=== PATIENT | female | born 1985 | race Two or more races ===

== ENCOUNTER 2017-08-16 19:10 | Emergency (ER) | payer BC, OTHER ==
--- NOTE | 2017-08-16 20:00 | EDPHY ---
H & P Stated Complaint: RLQ-abnormal US-possible tubal Time Seen by Provider: 08/16/17 19:27 HPI/ROS: CHIEF COMPLAINT: Pelvic pain, bleeding, known positive HISTORY OF PRESENT ILLNESS: The patient is a at approximately 9 weeks who presents to the ED after an episode of uterine bleeding and right-sided pelvic cramping. The patient had an ultrasound performed approximately week ago which demonstrated an IUP which the patient reported was closely located to the fallopian tube. The patient was also noted to have a right corpus luteum cyst at that point time. The patient is currently under care of the high risk of clinic at the [facility] secondary to a 24 week gestation during her 1st . The patient reports that her blood type is B-positive. She denies fever, cough, congestion, headache or dysuria. REVIEW OF SYSTEMS: A comprehensive 10 point review of systems is otherwise negative aside from elements mentioned in the history of present illness. Source: Patient Exam Limitations: No limitations - Personal History LMP (Females 10-55): Current Tetanus Diphtheria and Acellular Pertussis (TDAP): Yes Tetanus Vaccine Date: greater than 2 yrs - Medical/Surgical History Hx Asthma: No Hx Chronic Respiratory Disease: No Hx Diabetes: No Hx Cardiac Disease: No Hx Renal Disease: No Hx Cirrhosis: No Hx Alcoholism: No Hx HIV/AIDS: No Hx Splenectomy or Spleen Trauma: No Other PMH: , Crohn's, multiple ortho injuries - Social History Smoking Status: Never smoked - Physical Exam Exam: General Appearance: Alert, no distress Eyes: Pupils equal and round no pallor or injection ENT, Mouth: Mucous membranes moist Respiratory: There are no retractions, lungs are clear to auscultation Cardiovascular: Regular rate and rhythm Gastrointestinal: Mild distention, normal bowel sounds Neurological: 5/5 strength Skin: Warm and dry, no rashes Musculoskeletal: Neck is supple nontender Extremities: symmetrical, full range of motion Constitutional: Initial Vital Signs Temperature (C) 37.1 C 08/16/17 19:14 Heart Rate 95 08/16/17 19:14 Respiratory Rate 16 08/16/17 19:14 Blood Pressure 121/75 H 08/16/17 19:14 O2 Sat (%) 99 08/16/17 19:14 O2 Delivery Mode Room Air Allergies/Adverse Reactions: codeine [Codeine] Allergy (Verified 08/16/17 19:13) Penicillins Allergy (Verified 08/16/17 19:13) Home Medications: Medication Instructions Recorded TABLET 07/25/10 Probiotic 07/25/10 Medical Decision Making - Diagnostics Imaging Results: Pelvic ultrasound: Images reviewed by myself and discussed with radiologist Dr. Peres. Patient has a normal intrauterine with a heart rate of 67. There is no adnexal mass or evidence of torsion. ED Course/Re-evaluation: The patient presents to the ED after an episode of uterine bleeding. The patient is not having active bleeding in the emergency department. She is hemodynamically stable with a normal hematocrit. Pelvic ultrasound does demonstrate intrauterine . The patient's blood type is B-positive. The patient has been informed of the results of her ultrasound. She does plan to follow up with her institutional nutrition consultant as scheduled. She will be discharged home with customary aftercare instructions and return precautions. Differential Diagnosis: Differential diagnosis considered includes intrauterine , ectopic , inevitable , threatened - Data Points Laboratory Results: Laboratory Results 08/16/17 19:25 08/16/17 08/16/17 19:25 19:25 WBC 14.64 10^3/uL H 10^3/uL (3.80-9.50) RBC 4.75 10^6/uL 10^6/uL (4.18-5.33) Hgb 13.8 g/dL g/dL (12.6-16.3) Hct 39.4 % % (38.0-47.0) MCV 82.9 fL fL (81.5-99.8) MCH 29.1 pg pg (27.9-34.1) MCHC 35.0 g/dL g/dL (32.4-36.7) RDW 13.3 % % (11.5-15.2) Plt Count 302 10^3/uL 10^3/uL (150-400) MPV 9.7 fL fL (8.7-11.7) Neut % (Auto) 72.6 % % (39.3-74.2) Lymph % (Auto) 20.6 % % (15.0-45.0) Sawyer % (Auto) 5.4 % % (4.5-13.0) Eos % (Auto) 0.6 % % (0.6-7.6) Baso % (Auto) 0.3 % % (0.3-1.7) Nucleat RBC Rel Count 0.0 % % (0.0-0.2) Absolute Neuts (auto) 10.63 10^3/uL H 10^3/uL (1.70-6.50) Absolute Lymphs (auto) 3.01 10^3/uL H 10^3/uL (1.00-3.00) Absolute Monos (auto) 0.79 10^3/uL 10^3/uL (0.30-0.80) Absolute Eos (auto) 0.09 10^3/uL 10^3/uL (0.03-0.40) Absolute Basos (auto) 0.05 10^3/uL 10^3/uL (0.02-0.10) Absolute Nucleated RBC 0.00 10^3/uL 10^3/uL (0-0.01) Immature Gran % 0.5 % % (0.0-1.1) Immature Gran # 0.07 10^3/uL 10^3/uL (0.00-0.10) Beta HCG, Quant 570535.00 mIU/mL H mIU/mL (0.00-4.83) Departure - Departure Disposition: Home, Routine, Self-Care Clinical Impression: First trimester bleeding Condition: Good Instructions: First Trimester (ED) Additional Instructions: 1. The ultrasound demonstrates a normally located . There is no evidence of an obvious ovarian cyst or torsion. 2. Please return to the ED for severe pain, markedly increased bleeding, fever or other concerns. 3. Please follow up as scheduled with your institutional nutrition consultant. Referrals: Radha Alan MD [Primary Care Provider] - As per Instructions
[2017-08-16 20:03] LABS: PLATELET COUNT 302 10^3/uL (150-400)
[2017-08-16 21:37] VITALS: BP 118/68
== END 2017-08-16 21:38 | disposition home or self-care (01) ==
DX: O20.8 Other hemorrhage in early pregnancy (principal); Z3A.09 9 weeks gestation of pregnancy